=== PATIENT | male | born 2000 | race Caucasian/White ===

== ENCOUNTER 2019-11-03 01:51 | Emergency (ER) | payer SELFPAY ==
[~2019-11-03] VITALS: Ht 167.6 cm; Wt 55.2 kg
[2019-11-03] MEDS ORDERED: CYCLOBENZAPRINE10 MG PO (02:29)
== END 2019-11-03 02:57 | disposition home or self-care (01) ==
LOC: ED 01:51
DX: G89.29 Other chronic pain (principal); M54.5 Low back pain; F17.200 Nicotine dependence, unspecified, uncomplicated; Z88.2 Allergy status to sulfonamides; Z88.0 Allergy status to penicillin; Z88.8 Allergy status to other drugs, medicaments and biological substances
CPT/HCPCS: 99283